=== PATIENT | male | born 1955 | race African-American/Black ===

== ENCOUNTER 2021-01-09 06:36 | Emergency (ER) | payer BC ==
[~2021-01-09] VITALS: Ht 167.6 cm; Wt 68.8 kg
[2021-01-09 08:23] LABS: CLARITY URINE CLOUDY (CLEAR); KETONES URINE NEGATIVE (NEGATIVE); LEUKOCYTE ESTERASE URINE 3+ (NEGATIVE); NITRITE URINE POSITIVE (NEGATIVE); OCCULT BLOOD URINE 3+ (NEGATIVE); PH URINE 6.5 (4.5-8.0); PROTEIN URINE 3+ (NEGATIVE); SPECIFIC GRAVITY URINE 1.025 (1.005-1.030)
[2021-01-09 08:25] LABS: COLOR URINE BLOODY (YELLOW)
[2021-01-09 08:48] LABS: BASOPHILS % 0.7 % (0.0-2.0); EOSINOPHILS % 1.7 % (0.0-5.0); HEMATOCRIT. 39.8 % (36.0-48.0); HEMOGLOBIN. 13.3 g/dL (12.0-16.0); LYMPHOCYTES % 18.3 % (20.0-50.0); MEAN CORPUSCULAR HEMOGLOBIN 30.5 pg (28.0-32.0); MEAN CORPUSCULAR VOLUME 91.1 fL (81.0-99.0); MEAN PLATELET VOLUME 9.6 fl (7.4-10.4); MONOCYTES % 5.6 % (2.0-8.0); NEUTROPHILS % 73.7 % (40.0-76.0); PLATELET 171 x1000/uL (130-400); RED BLOOD CELL COUNT 4.37 mill/uL (4.2-5.4); RED CELL DISTRIBUTION WIDTH 14.8 % (11.6-14.6)
[2021-01-09 08:55] LABS: CHLORIDE 109 mEq/L (98-107); PROTHROMBIN TIME 10.7 sec (9.6-11.0)
[2021-01-09] MEDS ORDERED: CEFTRIAXONE 1 G PREMIX 50 ML IV ONE (09:30)
[2021-01-09] MEDS ORDERED: CEPH250C2 MT (13:05)
[2021-01-09 14:00] VITALS: BP 126/70
[2021-01-09] MEDS ORDERED: IOHEXOL-300 100 ML BOTTLE ONE (16:12)
== END 2021-01-09 14:20 | disposition home or self-care (01) ==
LOC: ER 07:29 → EDSEX 07:29 → ER 14:20
DX: N39.0 Urinary tract infection, site not specified (principal)
CPT/HCPCS: 36415; 74177; 80053; 81003; 85025; 85610; 87077; 87086; 87186; 96365; 99285; J0696; Q9967; Z7610; A4315